=== PATIENT | male | born 1965 | race Two or more races ===

== ENCOUNTER 2020-06-13 06:57 | Day surgery (SDC) | payer OTHER | END 2020-06-13 12:00 | disposition home or self-care (01) | LOC: AMB-ENDOS 06:57 | PROVIDERS: ATTEND Colon & Rectal Surgery | DX: K62.89 Other specified diseases of anus and rectum (principal); K64.2 Third degree hemorrhoids; Z12.11 Encounter for screening for malignant neoplasm of colon; Z20.828 Contact with and (suspected) exposure to other viral communicable diseases ==